=== PATIENT | male | born 1940 | race Caucasian/White ===

== ENCOUNTER → 2017-04-03 | Outpatient (CLI) | payer MEDICARE, BC ==
[~2017-04-03] MED LIST: ATORVASTATIN CA10 MG PO; ECOTRIN325 MG PO; METOPROLOL SUCC25 MG PO; OSTEO BI-FLEX1 EAC1 PO
== END | disposition home or self-care (01) ==
LOC: CSSDAY 14:15
DX: L03.119 Cellulitis of unspecified part of limb (principal); Z79.2 Long term (current) use of antibiotics
CPT/HCPCS: 96365; 96366; J2407; J7060